=== PATIENT | female | born 1995 | race Two or more races ===

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

== ENCOUNTER 2019-03-09 11:28 | Inpatient (IN) | payer BC ==
[2019-03-09] MEDS ORDERED: Buffered Lidocaine 1% SYRIN* 1 ML/SYRINGE INTRADERM ONE (12:18)
[2019-03-09] MEDS ORDERED: Misoprostol TAB* 100 MCG PO ONE ×2 (12:18→21:44)
[2019-03-09] MEDS ORDERED: Lactated Ringers 1000 ML Bag* 1,000 ML IV ONE (12:18)
[2019-03-09] MEDS ORDERED: Penicillin G Potassium IV* 5,000,000 UNITS in NS 0.9% 100 ML* 100 ML IVPB ONE (12:18)
--- NOTE | 2019-03-09 12:29 | HP ---
General Information - Reason for Visit 23 yo with IUP at 41 0/7 weeks for postdates cervical ripening/IOL - General Information Maternal Age: 23 Grav: 1 Para: 0 SAB: 0 IEA: 0 Estimated Due Date: 03/02/19 Determined By: LMP Maternal Blood Type and Rh: B Positive - Results this Serology/RPR Result: Non-Reactive Rubella Result: Immune HBsAg Result: Negative HIV Result: Negative GBS Culture Result: Positive Past Medical History Pertinent Past Medical History: See Records Past Medical History Comment: Exercise-induced asthma Depression/Anxiety - follows with a counselor Pertinent Past Surgical History: See Records Past Surgical History Comment: Cyst removed from sternum - 1997 Pertinent Family History: Non-Contributory - Antepartal Records Antepartal Records: Reviewed, Complicated by: - Sickle cell trait, FOB is so unlikely to be a carrier Review of Systems Constitutional: Comfortable CV Complaint: No Respiratory: Shortness of Breath: No Gastrointestinal: No Nausea/Vomiting, Normal Bowel Movement Genitourinary: No Dysuria, No Bleeding, No Leaking Fluid Musculoskeletal: No Complaint, No Epigastric Pain Neurological: No Headache, No Visual Changes Movement: Normal Exam Allergies/Adverse Reactions: Allergies nitrofurantoin [From Macrobid] Allergy (Mild, Verified 03/04/19 15:39) Itching B/P: 132/84, P: 101, RR: 16, T: 98.1 - Measurements Height: 5 ft 3.75 in Weight: 216 lb Weight in lbs: 216.194298 Body Mass Index (BMI): 37.3 Pre- Weight: 154 lb Weight Gained This : 62 lbs and 0 ozs - Exam Breast: Breast Exam Deferred Extremities: No Edema Heart: Normal Rhythm/Heart Sounds HEENT: No Significant Findings Lungs: Clear Bilaterally Reflexes: DTR 2+ Thyroid: No Thyromegaly - Abdominal Exam Abdomen Exam: Non-Tender, Fundal Height Consistent with Dates - Ultrasound/Biophysical Profile Ultrasound Status: Not Done Targeted Exam Findings See L&D Outpatient Visit Provider Note for Findings: N/A Estimated Weight: 7.5 lb by raheem's Cervical Exam: Closed Effacement: Thick Presenting Part: Vertex Membrane Status: Intact Bleeding/Discharge: None EFM Findings - External Monitor Findings Baseline Heart Rate: 125 External Monitor Findings: Accelerations Present, No Pattern of Variable or Late Decelerations, Variability Moderate, Baseline Stable Contractions: None Assessment/Plan - Assessment A: IUP at 41 0/7 weeks Category I FHR Cervix unfavorable for induction GBS positive P: Discussed cervidil vs. misoprostol for ripening, pt prefers PO misoprostol at this time Begin GBS prophylaxis once in active labor or ROM Reassess in 3-4 hours or sooner as indicated Anticipate SVB - Obstetrical Risk Factors Obstetrical Risk Factors: GBS Positive, Post-Dates - Plan Plan: Cervical Ripening, Antibiotic Prophylaxis - Date/Time of Admission Date of Admission: 03/09/19 Time of Admission: 12:15
--- NOTE | 2019-03-09 17:31 | PN ---
Progress Note - Progress Note Date of Service: 03/09/19 SOAP: Subjective: Pt reports feeling comfortable, denies headache, denies abdominal pain. Does not feel ctx. Objective: BP elevated, most recently was 162/107. Prior to that BP was 120's to 130's over 70's. Pt states that she was moving arm while BP was taken. FHR baseline 125, moderate variability, + accels, no decels UCs mild 5-10 minutes apart, not felt by pt Membranes intact No recent cervical exam performed as misoprostol just given at 1706 Assessment: 23 year old at 41 0/7 weeks gestation here for cervical ripening/ IOL for postdates, no evidence of acidemia, GBS positive membranes intact, with several elevated BPs, possibly gestational HTN vs preeclampsia vs white coat syndrome (BPs have always been higher when RN/ welfare interviewer at bedside) Plan: Pt had misoprostol, will monitor for effect, continue augmentation/ induction. IV access established, and preeclampsia labs sent. If BP remains elevated, or if labs are abnormal will consult with Dr. Loar.
[2019-03-09 17:46] LABS: ABS Basophils 0 10^3/ul (0-0.2); ABS Eosinophils 0 10^3/ul (0-0.6); ABS Lymphocytes 1.2 10^3/ul (1.0-4.8); ABS Neutrophils 4.2 10^3/ul (1.5-7.7); ABS Nucleated RBC 0 10^3/ul; Eosinophil % 0.4 %; Hematocrit 37 % (33-41); Hemoglobin 12.4 g/dL (12.0-16.0); Mean Corpuscular HGB Conc 33 g/dL (31-36); Mean Corpuscular Hemoglobin 27 pg (27-31); Mean Corpuscular Volume 80 fL (80-97); Mean Platelet Volume 9.5 fL (7.4-10.4); Nucleated Red Blood Cells % 0.1; Platelet Count 197 10^3/uL (150-450); Red Blood Count 4.67 10^6 /uL (3.70-4.87); Red Cell Distribution Width 15 % (10.5-15); White Blood Count 6.5 10^3/uL (3.5-10.8)
[2019-03-09 18:13] LABS: Albumin 3.5 g/dL (3.2-5.2); Albumin/Globulin Ratio 1.2 (1-3); BUN/Creatinine Ratio 14.5 (8-20); Calcium 9.3 mg/dL (8.6-10.3); EGFR Non-African American 107.4 (>60); Potassium 4.1 mmol/L (3.5-5.0); Total Bilirubin 0.3 mg/dL (0.2-1.0); Total Protein 6.5 g/dL (6.4-8.9)
[2019-03-09 18:41] LABS: Uric Acid 6.6 mg/dL (2.3-6.6)
[2019-03-09 19:08] LABS: Urine Appearance Clear; Urine Bacteria 1+ (Absent); Urine Bilirubin Negative (Negative); Urine Blood Negative (Negative); Urine Color Yellow; Urine Glucose Negative (Negative); Urine Ketones Negative (Negative); Urine Nitrite Negative (Negative); Urine Protein Negative (Negative); Urine Red Blood Cell Absent (Absent); Urine Specific Gravity 1.016 (1.010-1.030); Urine Squamous Epithelial Cell Present (Absent); Urine Urobilinogen Negative (Negative); Urine White Blood Cell Trace(0-5/hpf) (Absent)
--- NOTE | 2019-03-09 22:04 | PN ---
Progress Note - Progress Note Date of Service: 03/09/19 SOAP: Subjective: Pt reports feeling some "tightening" intermittently, not uncomfortable. Feels active FM. Objective: BP now 130/80 Labs largely WNL, although uric acid 6.6. Urine dip negative for protein. FHR: Baseline 125, moderate variability, + accels, no decels UCs mild, irregular Cervix: closed/ 50% effaced/ soft/ posterior Garvey score = 3 Assessment: Pt remains unfavorable for Pitocin induction at this time. No evidence of acidemia. Membranes intact. Continued elevated BP, although none as high as previous. Plan: Consulted Dr. Lora regarding pt's elevated BPs. Likely Gestational HTN vs preeclampsia. Recommends continued induction of labor. Discussed options with pt for cervical ripening, as cervix remains unfavorable for Pitocin induction at this time. Discussed Cervidil vs continued misoprostol. As pt very uncomfortable with cervical exams, she elects to continue oral misoprostol. Will reevaluate 4 hours after misoprostol or as needed.
[2019-03-10] MEDS: Lactated Ringers 1000 ML Bag* 1,000 ML IV SCH ×2 (02:59→21:37)
--- NOTE | 2019-03-10 03:22 | PN ---
Progress Note - Progress Note Date of Service: 03/10/19 SOAP: Subjective: Pt reports SROM to clear fluid around 0230. Since then she reports ctx feel more uncomfortable. She also reports heartburn. Has been sleeping on and off. Objective: FHR: Baseline 110, moderate variability, + accels, no decels UCs: every 1-5 minutes, mild to moderate in intensity BP: 135/63 Temp: 97.7 Assessment: 23 year old at 41 1/7 weeks gestation here for cervical ripening/ IOL for postdates, now with gestational HTN vs preeclampsia without severe features. Membranes ruptured, GBS positive. No evidence of chorioamnionitis. FHR baseline 110, lower than previous, but still within normal range, and showing moderate variability and + accelerations, no evidence of acidemia. Plan: Since she ruptured and is now feeling ctx more painfully, will monitor labor status for a few hours and see if active labor begins spontaneously. If not will consider oral misoprostol vs Pitocin. GBS prophylaxis initiated. Tums ordered for heartburn. Will continue EFM for now to monitor baby following baseline change from 125 to 110. IF FHR continues to be Category I can return to intermittent monitoring.
[2019-03-10] MEDS: Calcium Carbonate CHEW TAB* 500 MG (TUMS) PO PRN ×2 (03:28→08:37)
[2019-03-10] MEDS: Penicillin G Potassium IV* 2,500,000 UNITS in NS 0.9% 100 ML* 100 ML IVPB SCH ×5 (07:27→23:50)
--- NOTE | 2019-03-10 08:16 | PN ---
Progress Note - Progress Note Date of Service: 03/10/19 SOAP: Subjective: Pt feeling stronger contractions. Used the tub for a while, then was asking about other options for pain relief. Objective: Cervix: difficult to assess fully due to position and pt discomfort with exam, posterior, likely closed, perhaps more effaced than previously BP: 112/72 Temp: 97.8 FHR: Baseline 110 Assessment: Pt with ruptured membranes, not yet in active labor, although ctx starting to increase in intensity. No evidence of acidemia, not hypertensive this morning. Plan: Discussed options for pain relief with pt. Encouraged her to wait for epidural. Offered Nubain and Phenergan, pt would like to try. Encouraged position changes , ambulation as tolerated. Morteza too much for further cervical ripening at this time. Will monitor her contractions, consider Pitocin augmentation as needed. Report to oncoming hospital personnel director Kristal Kaba CNM.
--- NOTE | 2019-03-10 08:36 | PN ---
Progress Note - Progress Note Date of Service: 03/10/19 Note: SOAP: Subjective: Pt feeling stronger contractions every 2-5 minutes. Tearful, requesting pain medication. Objective: VE: deferred BP 112/72, temp 97.8 FHR 110, with baseline change to 120, +accelerations, moderate variability, no decels Contractions: palpate moderate to strong, q2-5 minutes SROM 0230 03/10, clear fluid Assessment: VSS, afrebile, hx of elevated BP - not hypertensive this AM GBS+, prophylaxis started Early labor No evidence of acidemia Plan: Will give pt Nubain and Phenergan Discussed possibility of Pitocin augmentation, if no cervical change. After risks vs. benefits, pt in agreement with plan. VE prn anticipate progression to
--- NOTE | 2019-03-10 09:42 | PN ---
Progress Note - Progress Note Date of Service: 03/10/19 Note: SOAP: Subjective: Pt sitting up in chair. Deferred pain medication so she could walk halls. Still feeling contractions, some more painful than others. Now ready for pain medication. Objective: VE: difficult vaginal exam. Cervix is posterior and pt intolerant of exams. Cervix soft and possibly a fingertip Contractions q5 mins Assessment: Regular contractions, without documented cervical change Plan: Will give pt Nubain and Phenergan Given regular contractions, not a good candidate for additional cervical ripening Plan to start low dose Pitocin. Pt in agreement with plan. VE prn Anticipate progression to active labor
[2019-03-10] MEDS ORDERED: Oxytocin in LR* 20 UNITS/1,000 ML BAG IVPB SCH (10:00)
[2019-03-10] MEDS: Nalbuphine* 10 MG/ML 1 ML VIAL IV ONE ×2 (11:17→11:18)
[2019-03-10] MEDS: Promethazine INJ(RESTRICTED)* 25 MG/ML 1 ML VIAL IV ONE (11:18)
--- NOTE | 2019-03-10 13:21 | PN ---
Progress Note - Progress Note Date of Service: 03/10/19 Note: SOAP: Subjective: Pt laying in bed. States contractions are becoming more intense. Eating a cookie. Feels like pain medication wearing off. Well supported by family and friends at bedside. Objective: VE: deferred FHT: 115, moderate variability Contractions q2-3 mins, (coupling) Assessment: No evidence of acidemia Regular contractions Pitocin@8mU Plan: Continue to increase Pitocin as tolerated by baby/pt GBS prophylaxis as prescribed VE prn Anticipate progression to active labor
[2019-03-10] MEDS ORDERED: OBEPIDURAL* 250 ML EPIDURAL ONE (15:15)
--- NOTE | 2019-03-10 15:26 | PN ---
Progress Note - Progress Note Date of Service: 03/10/19 Note: SOAP: Subjective: Pt laying in bed. Tearful with contractions. Objective: VE: vaginal exam continue to be painful for the patient and difficult. FT/50%, soft, posterior, bloody show FHT: 125, moderate variability Contractions q2-3 mins Assessment: No evidence of acidemia Regular contractions Plan: Pt very uncomfortable and intolerant of VE. Plan for epidural Anesthesia aware Will turn Pitocin down and restart Pitocin after epidural depending on VE GBS prophylaxis as prescribed Anticipate progression to active labor
[2019-03-10] MEDS ORDERED: Bupivacaine 0.25% SDV PF* 10 ML VIAL INJ ONE ×3 (15:41→22:30)
[2019-03-10] MEDS ORDERED: Sodium Citrate/Citric Acid* 15 ML UDC PO PRN (16:21)
[2019-03-10] MEDS ORDERED: EPHEDrine (Pressors)* 50 MG/ML VIAL IV PUSH PRN (16:21)
[2019-03-10] MEDS ORDERED: Lactated Ringers 1000 ML Bag* 1,000 ML IV ONE (16:21)
[2019-03-10] MEDS ORDERED: Famotidine TAB* 20 MG PO PRN (16:21)
[2019-03-10] MEDS ORDERED: Phenylephrine 40 MCG/ML SYRINGE IV PUSH PRN (16:21)
[2019-03-10] MEDS ORDERED: Lidocaine 2% VISCOUS* 15 ML UDC ONE (16:58)
[2019-03-10] MEDS ORDERED: Lidocaine 2% JELLY* 6 ML JELLY TOPICAL ONE (16:59)
[2019-03-10] MEDS ORDERED: OBEPIDURAL* 250 ML EPIDURAL SCH (17:00)
[2019-03-10] MEDS ORDERED: Lactated Ringers 1000 ML Bag* 1,000 ML IV SCH (17:00)
--- NOTE | 2019-03-10 17:47 | PN ---
Progress Note - Progress Note Date of Service: 03/10/19 Note: SOAP: Subjective: Pt laying in bed. Comfortable with CEI infusing. Family/friends at bedside, supportive. Objective: VE: performed without difficulty. 2cm/80%/-1/0, anterior FHT: 135, moderate variability, early variables Contractions: q3-5 (coupling) Assessment: Pt comfortable with CEI infusing No evidence of acidemia Pt making cervical change Plan: Restart Pitocin, increase until effective labor pattern established GBS prophylaxis as prescribed Anticipate progression to
--- NOTE | 2019-03-10 19:34 | PN ---
Progress Note - Progress Note Date of Service: 03/10/19 Note: SOAP: Subjective: Pt laying on right lateral. Comfortable with CEI infusing. Family/friends at bedside, supportive. Objective: VE: performed without difficulty. 3cm/80%/-1/0, anterior FHT: 135, moderate variability, late decels noted BP 127/69, temp 97.8 Contractions: q3-5 (coupling) Pit@14 mU Assessment: VSS, pt afebrile Pt comfortable with CEI infusing Occasional late decels - no evidence of acidemia Pt making cervical change Plan: Re late decels - position changes, LR infusing, Pit turned down 12 mU GBS prophylaxis as prescribed Anticipate progression to
--- NOTE | 2019-03-10 22:10 | PN ---
Progress Note - Progress Note Date of Service: 03/10/19 Note: SOAP: Subjective: Pt laying on left lateral. Uncomfortable, with CEI infusing. Feeling pressure and shaky. Family/friends at bedside, supportive. Objective: VE: performed without difficulty. 5cm/100%/-1 anterior, bulging bag FHT: 130, moderate variability, accels present, early decels BP 143/67, temp 98.0 Contractions: q2-5 Pit@11 mU Assessment: No evidence of acidemia Pt afebrile Pt very uncomfortable with CEI infusing Pt making cervical change Plan: Spoke with anesthesia. Dr. Ambrosio in OR. Dr. Cyr paged from home. VE: PRN GBS prophylaxis as prescribed Anticipate progression to
[2019-03-10] MEDS ORDERED: Lidocaine 2% PF* 10 ML AMP ONE (22:34)
--- NOTE | 2019-03-10 23:25 | PN ---
Progress Note - Progress Note Date of Service: 03/10/19 Note: SOAP: Subjective: Pt laying on right lateral. Comfortable with CEI infusing. Shaky. Family/ friends at bedside, supportive. Objective: VE: performed without difficulty. 8cm/100%/0 anterior, forebag ruptured FHT: 135, moderate variability, accels present, no decels BP 135/69, temp 98.2 Contractions: after re-dose, pt contractions spaced considerably and now palpate mild Pit was at 13mU, before turned off Assessment: No evidence of acidemia Pt afebrile, BP stable Following forebag rupture, thin meconium noted in fluid Pt now comfortable following re-dose Pt making cervical change Plan: Turn-off Pitocin for short break, will restart in 30mins to 1 hour VE: PRN GBS prophylaxis as prescribed Anticipate progression to
[2019-03-11] MEDS: Calcium Carbonate CHEW TAB* 500 MG (TUMS) PO PRN (00:02)
--- NOTE | 2019-03-11 00:20 | PN ---
Progress Note - Progress Note Date of Service: 03/11/19 Note: SOAP: Subjective: Pt laying on left lateral. Comfortable with CEI infusing. Family/friends at bedside, supportive. Objective: VE: performed without difficulty. 9cm/100%/0 anterior FHT: 135, moderate variability, accels present, no decels Contractions: after re-dose, pt contractions spaced considerably and now palpate mild Pitocin@5mU Assessment: No evidence of acidemia Pt making cervical change Plan: Pitocin restarted VE: PRN GBS prophylaxis as prescribed Anticipate progression to
--- NOTE | 2019-03-11 01:10 | PN ---
Progress Note - Progress Note Date of Service: 03/11/19 Note: SOAP: Subjective: Comfortable with CEI infusing. Family/friends at bedside, supportive. Objective: VE: performed without difficulty. 10cm/100%/0 anterior FHT: 135, moderate variability, accels present, no decels Contractions: after re-dose, pt contractions spaced considerably and now palpate mild Pitocin@5mU Assessment: No evidence of acidemia Meconium stained fluid Fully dilated Plan: Continue to increase Pitocin to establish effective contraction pattern for pushing Pt to labor down GBS prophylaxis as prescribed Anticipate progression to
[2019-03-11] MEDS: Penicillin G Potassium IV* 2,500,000 UNITS in NS 0.9% 100 ML* 100 ML IVPB SCH (03:45)
[2019-03-11] MEDS ORDERED: Glycerin ADULT SUPP PR PRN (06:18)
[2019-03-11] MEDS ORDERED: Misoprostol TAB* 200 MCG PR ONE (06:18)
--- NOTE | 2019-03-11 06:30 | PROCNOTE ---
[facility] OB: Delivery Note - Delivery A Date of : 03/11/19 Time of : 04:37 Gamaliel Sex: Male Weight at : 4185 lb Score 1 Minute: 8 Score 5 Minutes: 9 Gestational Age in Weeks and Days at Delivery: 41 Weeks and 2 Days Delivery Method: Spontaneous Vaginal Labor: Induced Did Patient attempt ?: No, Did Not Attempt Amniotic Fluid: Meconium Estimated Blood Loss: 700 Anesthesia/Analgesia: CEI for Labor Anesthesia Comment: Switzer Delivered By: Anh Kaba - Nursery Level of Nursery: Regular/Bedside - Perineum Perineal Injury: 3rd Degree Extension Perineal Injury Comment: repaired with CEI infusing and 1% lido Perineal Repair: Repaired by Vimal Crowe MD - Events Delivery Events of Note: Pitocin During Labor, Full Course of Antibiotics, Post- Bleeding - Meds Given, ROM > 24 Hours Delivery Events of Note Comment: trailing membranes - Risk for Falls Delivered OB Patient- Risk for Falls: Heavy Bleeding Fall Risk: Patient is at High Risk for Falls - Additional Delivery Notes Additional Delivery Notes: 23 yo at 41+2 weeks admitted for cervical ripening and an IOL for postdates. Ripening via misoprostol x2 doses; labor augmented by pitocin. SROM at 0230 on 03/10, light meconium fluid. Progressed to complete, CEI infusing with incomplete relief. Pt began pushing spontaneously without discernable contractions at 0330. Crowned to delivery of liveborn male infant at 0437, OA to ABBEY. Shoulders followed easily. to mother's chest, dried and stimulated with spontaneous cry. Cord clamped and cut x2 by delivering provider. Brought to warmer for delivery of placenta and extra stimulation. Spontaneous yanick delivery of intact placenta at 0512 by Vimal Crowe MD with trailing membranes delivered by Mo Kaba CNM. Pitocin initiated. Brisk bleeding continued as IV pitocin infused. Misoprostol, 800 mcg, given MI. Fundus firm. Bleeding resolved. EBL 700mL. After careful inspection a third degree perineal laceration was identified and repaired in the usual fashion by Vimal Crowe MD. Normal anatomy restored, hemostasis achieved. formula feeding, 9lbs 4 oz. Mother and infant in stable condition at time of note. moody
[2019-03-11] MEDS ORDERED: Methylergonovine INJ* 0.2 MG/ML 1ML AMP ONE (06:40)
[2019-03-11] MEDS ORDERED: OXYTOCIN* 10 UNITS/ML 1 ML VIAL ONE (06:40)
[2019-03-11] MEDS ORDERED: Lidocaine 1% INJ* 10 MG/ML 30 ML SDV ONE (06:41)
[2019-03-11] MEDS ORDERED: Lactated Ringers 1000 ML Bag* 1,000 ML IV SCH (07:00)
[2019-03-11] MEDS ORDERED: Oxytocin in LR* 20 UNITS/1,000 ML BAG IVPB SCH (07:00)
--- NOTE | 2019-03-11 08:13 | PN ---
Progress Note - Progress Note Date of Service: 03/11/19 Note: Present for delivery of male . Assisted with delivery of placenta after 30min of active management by CNM. Placenta delivered with uterine massage and cord traction immediately followed by trailing membranes. Moderate bleeding was managed with uterine massage, IV pitocin and cytotec. A partial 3rd degree laceration was repaired first with several interrupted sutures of 3-0 vicryl to reapproximate the sphincter. Then a deep vaginal laceration was repaired with locked running 3-0 vicryl rapide. This was continued to repair b/l introital tears and then into normal repair of a second degree tear that extended superficially almost to the rectum. Normal rectal exam after repair. Pt stable with good hemostasis.
[2019-03-11] MEDS ORDERED: Simethicone TAB* 80 MG TAB.CHEW PO SCH (08:30)
[2019-03-11] MEDS: Docusate CAP* 100 MG PO SCH ×3 (08:35→21:02)
[2019-03-11] MEDS: Ibuprofen TAB* 600 MG PO PRN ×2 (08:37→18:06)
[2019-03-11] MEDS: Witch Hazel PAD* JAR TOPICAL PRN (14:59)
[2019-03-11] MEDS: Dibucaine 1% 28.35 GM TUBE PR PRN (20:08)
[2019-03-11] MEDS: Acetaminophen TAB* 325 MG PO PRN (21:02)
[2019-03-12] MEDS: Ibuprofen TAB* 600 MG PO PRN ×4 (00:35→21:02)
[2019-03-12] MEDS: Acetaminophen TAB* 325 MG PO PRN (05:09)
[2019-03-12 09:02] LABS: ABS Basophils 0 10^3/ul (0-0.2); ABS Eosinophils 0.1 10^3/ul (0-0.6); ABS Lymphocytes 1.5 10^3/ul (1.0-4.8); ABS Monocytes 1.1 10^3/ul (0-0.8); ABS Neutrophils 9.1 10^3/ul (1.5-7.7); ABS Nucleated RBC 0 10^3/ul; Eosinophil % 0.6 %; Hematocrit 28 % (33-41); Hemoglobin 9.4 g/dL (12.0-16.0); Lymphocyte % 12.9 %; Mean Corpuscular HGB Conc 33 g/dL (31-36); Mean Corpuscular Hemoglobin 26 pg (27-31); Mean Corpuscular Volume 79 fL (80-97); Mean Platelet Volume 9.3 fL (7.4-10.4); Nucleated Red Blood Cells % 0; Platelet Count 149 10^3/uL (150-450); Red Blood Count 3.59 10^6 /uL (3.70-4.87); Red Cell Distribution Width 15 % (10.5-15); White Blood Count 11.9 10^3/uL (3.5-10.8)
[2019-03-12] MEDS: Ferrous Gluconate TAB* 324 MG TAB PO SCH ×2 (09:10→21:02)
[2019-03-12] MEDS: Docusate CAP* 100 MG PO SCH ×3 (09:10→21:02)
[2019-03-12] MEDS: Dibucaine 1% 28.35 GM TUBE PR PRN (09:10)
[2019-03-12] MEDS: Witch Hazel PAD* JAR TOPICAL PRN (09:11)
--- NOTE | 2019-03-12 20:58 | PTEDU ---
Patient Name: ALYSSIA HENAO ALYSSIA HENAO selected video: Never Ever Shake a Baby to view on 03/12/2019 at 8:56:54 PM [id number]
[2019-03-13] MEDS: Ibuprofen TAB* 600 MG PO PRN (07:46)
[2019-03-13] MEDS: Witch Hazel PAD* JAR TOPICAL PRN (07:47)
[2019-03-13] MEDS: Ferrous Gluconate TAB* 324 MG TAB PO SCH (07:47)
[2019-03-13] MEDS: Dibucaine 1% 28.35 GM TUBE PR PRN (07:47)
[2019-03-13] MEDS: Docusate CAP* 100 MG PO SCH (07:47)
[2019-03-13 08:51] VITALS: BP 128/63
[2019-03-13 11:12] LABS: Urine Appearance Cloudy; Urine Bacteria Absent (Absent); Urine Bilirubin Negative (Negative); Urine Blood 3+ (Negative); Urine Glucose Negative (Negative); Urine Ketones Negative (Negative); Urine Nitrite Negative (Negative); Urine Protein 2+(100 mg/dL) (Negative); Urine Red Blood Cell 3+(>10/hpf) (Absent); Urine Urobilinogen Negative (Negative); Urine White Blood Cell 3+(>20/hpf) (Absent)
[2019-03-13 11:25] LABS: Urine Color Amber
[2019-03-13] MEDS ORDERED: Cephalexin CAP* 500 MG PO SCH (21:00)
== END 2019-03-13 13:08 | disposition home or self-care (01) | DRG 542 ==
LOC: MCHOBOUT 11:28 → MCHOB 11:53
PROVIDERS: ADMIT Midwife; ATTEND Advanced Practice Midwife
PROC: 10E0XZZ Delivery of Products of Conception, External Approach (ICD-10-PCS; principal; 2019-03-13)
PROC: 3E033VJ Introduction of Other Hormone into Peripheral Vein, Percutaneous Approach (ICD-10-PCS; 2019-03-13)
PROC: 10907ZC Drainage of Amniotic Fluid, Therapeutic from Products of Conception, Via Natural or Artificial Opening (ICD-10-PCS; 2019-03-13)
PROC: 4A1HXCZ Monitoring of Products of Conception, Cardiac Rate, External Approach (ICD-10-PCS; 2019-03-13)
PROC: 0DQR0ZZ Repair Anal Sphincter, Open Approach (ICD-10-PCS; 2019-03-13)
DX: O48.0 Post-term pregnancy (principal); Z37.0 Single live birth; O99.42 Diseases of the circulatory system complicating childbirth; O99.02 Anemia complicating childbirth; D57.3 Sickle-cell trait; O99.824 Streptococcus B carrier state complicating childbirth; R03.0 Elevated blood-pressure reading, without diagnosis of hypertension; Z3A.41 41 weeks gestation of pregnancy; Z88.1 Allergy status to other antibiotic agents; O77.0 Labor and delivery complicated by meconium in amniotic fluid; O90.81 Anemia of the puerperium; O76 Abnormality in fetal heart rate and rhythm complicating labor and delivery
CPT/HCPCS: 36415; 80053; 81003; 81015; 84550; 85025; 86850; 86900; 86901; 87077; 87086; 87186; A9270-GY; J2001; J2210; J2300; J2540; J2550; J2590; J3490; S0191

== ENCOUNTER 2019-03-13 21:47 | Emergency (ER) | payer BC ==
--- NOTE | 2019-03-13 22:49 | ED ---
GI/ HPI - HPI Summary HPI Summary: This patient is a 23 year old F, , presenting to [facility] with a chief complaint of a post complication at 20:30 today. She had a vaginal delivery on 03/11/19 and was discharged today around 12:00. During delivery, the placenta got stuck for a while and she suffered a 3rd degree tear. Tonight , at 20:30, she was taking a sitz bath when she felt a burning sensation and a fist-sized blood clot came out. While in the hospital, pt was told that she has a UTI, so since yesterday she has felt pain and has had difficulty peeing. Patient reports cramps (at first, not anymore), lightheadedness, and swollen legs. Patient denies fever. During , her blood pressure was occasionally high, but she was not given meds, just monitored. Her blood pressure in the room at 22:45 was 127/75. - History of Current Complaint Chief Complaint: EDVaginalBleeding Time Seen by Provider: 03/13/19 22:34 Stated Complaint: OB PROBLEM PER PT Hx Obtained From: Patient Hx Last Menstrual Period: 12/27/16 Onset/Duration: Started Hours Ago - 20:30 Severity: Moderate Pain Intensity: 0 Pain Characteristics: Cramping - at first, not anymore Associated Signs and Symptoms: Positive: Discharge - Fist sized clot, Lightheadedness, UTI Symptoms - Pain and difficulty peeing, Other: - Swollen legs. Negative: Fever - Allergy/Home Medications Allergies/Adverse Reactions: Allergies Allergy/AdvReac Type Severity Reaction Status Date / Time nitrofurantoin Allergy Mild Itching Verified 03/13/19 22:08 [From Macrobid] PMH/Surg Hx/FS Hx/Imm Hx Endocrine/Hematology History: Denies: Hx Anticoagulant Therapy, Hx Diabetes, Hx Thyroid Disease Cardiovascular History: Denies: Hx Congestive Heart Failure, Hx Deep Vein Thrombosis, Hx Hypertension , Hx Myocardial Infarction, Hx Pacemaker/ICD Respiratory History: Reports: Hx Asthma - Exercise induced - Albuterol inhaler as needed Denies: Hx Chronic Obstructive Pulmonary Disease (COPD), Hx Lung Cancer, Hx Pneumonia, Hx Pulmonary Embolism GI History: Denies: Hx Gall Bladder Disease, Hx Gastrointestinal Bleed, Hx Ulcer, Hx Urosepsis History: Denies: Hx Kidney Stones, Hx Renal Disease Neurological History: Denies: Hx Dementia, Hx Migraine, Hx Seizures, Hx Transient Ischemic Attacks (TIA) Psychiatric History: Reports: Hx Anxiety, Hx Depression Denies: Hx Schizophrenia, Hx Bipolar Disorder - Surgical History Surgery Procedure, Year, and Place: None - Immunization History Date of Tetanus Vaccine: 03/12/09 Infectious Disease History: No Infectious Disease History: Denies: Traveled Outside the [place] in Last 30 Days - Family History Known Family History: Negative: Cardiac Disease, Hypertension - Social History Alcohol Use: None Substance Use Type: Reports: None Smoking Status (MU): Never Smoked Tobacco Review of Systems Negative: Fever Positive: discharge - Fist sized clot, pain - Cramps (at first, not anymore), pain from UTI, burning sensation when discharging the clot in the sitz bath, other - Difficulty urinating secondary to UTI Positive: Edema - Swollen legs Neurological: Other - Lightheadedness All Other Systems Reviewed And Are Negative: Yes Physical Exam - Summary Physical Exam Summary: VITAL SIGNS: Reviewed. GENERAL: Patient is a well-developed and nourished FEMALE who is lying comfortable in the stretcher. Patient is not in any acute respiratory distress. HEAD AND FACE: No signs of trauma. No ecchymosis, hematomas or skull depressions. No sinus tenderness. EYES: PERRLA, EOMI x 2, No injected conjunctiva, no nystagmus. EARS: Hearing grossly intact. Ear canals and tympanic membranes are within normal limits. MOUTH: Oropharynx within normal limits. NECK: Supple, trachea is midline, no adenopathy, no JVD, no carotid bruit, no c- spine tenderness, neck with full ROM. CHEST: Symmetric, no tenderness at palpation LUNGS: Clear to auscultation bilaterally. No wheezing or crackles. CVS: Regular rate and rhythm, S1 and S2 present, no murmurs or gallops appreciated. ABDOMEN: Soft. Abdominal distention without tenderness. No rebound, no guarding , and no masses palpated. Bowel sounds are normal. EXTREMITIES: FROM in all major joints, trace bilateral LE edema, no cyanosis or clubbing. NEURO: Alert and oriented x 3. No acute neurological deficits. Speech is normal and follows commands. SKIN: Dry and warm Triage Information Reviewed: Yes Vital Signs On Initial Exam: Initial Vitals Temp Pulse Resp BP Pulse Ox 98.0 F 102 16 165/73 99 03/13/19 22:00 03/13/19 22:00 03/13/19 22:00 03/13/19 22:00 03/13/19 22:00 Vital Signs Reviewed: Yes Diagnostics - Vital Signs Vital Signs Temp Pulse Resp BP Pulse Ox 03/13/19 22:00 98.0 F 102 16 165/73 99 - Laboratory Result Diagrams: 03/13/19 23:25 03/13/19 23:25 Lab Statement: Any lab studies that have been ordered have been reviewed, and results considered in the medical decision making process. - Ultrasound No standard instances Ultrasound Interpretation Completed By: Radiologist Summary of Ultrasound Findings: Pelvis US 00:00. Heterogeneously hyperechoic thickening of the endometrium without definite. hyperemia. Findings are nonspecific, however retained products of conception. cannot be entirely excluded. Recommend continued short-term followup pelvic. ultrasound at the discretion of [employer] SAL[employer]SULTANT. ED Physician has reviewed this imaging report. GIGU Course/Dx - Course Course Of Treatment: This patient is a 23 year old F, , presenting to [facility] with a chief complaint of a post complication at 20:30 today. Patient s pelvic US did show no definite returned product. Patient did not have any further bleeding in the ED. Patient will be d/c home on Methergine for 2 days. Advised to follow up with bryon tomorrow. D/c home, dx bleeding. - Diagnoses Provider Diagnoses: bleeding Discharge - Sign-Out/Discharge Documenting (check all that apply): Patient Departure - D/C home Patient Received Moderate/Deep Sedation with Procedure: No - Discharge Plan Condition: Stable Disposition: HOME Prescriptions: Methylergonovine TAB* [Methergine TAB*] 0.2 mg PO TID #6 tab Patient Education Materials: Bleeding (ED) Referrals: Noel Zamudio MD [Primary Care Provider] - 3 Days Jorgito Borrero MD [Medical Doctor] - 1 Day Additional Instructions: Follow up with bryon Bell, tomorrow. Follow up with your PCP in 3 days. PLEASE RETURN TO THE ED IMMEDIATELY FOR WORSENING OR CONCERNING SYMPTOMS. - Attestation Statements Document Initiated by Scribe: Yes Documenting Scribe: Howard Melendrez Provider For Whom Scribe is Documenting (Include Credential): Darcy Helm MD Scribe Attestation: Howard Terrazas scribed for Darcy Helm MD on 03/14/19 at 0026. Status of Scribe Document: Ready
[2019-03-13 23:34] LABS: ABS Basophils 0.1 10^3/ul (0-0.2); ABS Eosinophils 0.2 10^3/ul (0-0.6); ABS Lymphocytes 1.3 10^3/ul (1.0-4.8); ABS Monocytes 0.8 10^3/ul (0-0.8); ABS Neutrophils 8.4 10^3/ul (1.5-7.7); ABS Nucleated RBC 0 10^3/ul; Eosinophil % 1.8 %; Hematocrit 27 % (33-41); Hemoglobin 9.3 g/dL (12.0-16.0); Lymphocyte % 12.1 %; Mean Corpuscular HGB Conc 34 g/dL (31-36); Mean Corpuscular Hemoglobin 27 pg (27-31); Mean Corpuscular Volume 79 fL (80-97); Mean Platelet Volume 8.9 fL (7.4-10.4); Nucleated Red Blood Cells % 0.1; Platelet Count 198 10^3/uL (150-450); Red Blood Count 3.46 10^6 /uL (3.70-4.87); Red Cell Distribution Width 15 % (10.5-15); White Blood Count 10.7 10^3/uL (3.5-10.8)
[2019-03-13 23:43] LABS: Activated Partial Thrombo Time 22.7 seconds (26.0-36.3); INR 0.86 (0.77-1.02)
[2019-03-13 23:52] LABS: Albumin 3.2 g/dL (3.2-5.2); Albumin/Globulin Ratio 1.1 (1-3); Calcium 8.9 mg/dL (8.6-10.3); EGFR African American 152.7 (>60); EGFR Non-African American 126.2 (>60); Potassium 3.8 mmol/L (3.5-5.0); Total Bilirubin 0.2 mg/dL (0.2-1.0); Total Protein 6.2 g/dL (6.4-8.9)
[2019-03-14] MEDS ORDERED: Methylergonovine TAB* 0.2 MG PO ONE (00:16)
[2019-03-14 02:03] VITALS: BP 125/80
== END 2019-03-14 01:40 | disposition home or self-care (01) ==
LOC: ED 21:47
DX: O72.1 Other immediate postpartum hemorrhage (principal); R60.9 Edema, unspecified; N39.0 Urinary tract infection, site not specified; R42 Dizziness and giddiness
CPT/HCPCS: 36415; 76856; 80053; 85025; 85610; 85730; 86850; 86900; 86901; 99283; A9270-GY

== ENCOUNTER 2021-10-28 10:19 | Inpatient (IN) ==
[2021-10-28] MEDS ORDERED: Penicillin G Potassium IV 5,000,000 UNITS in NS 0.9% 100 ml BAG 100 ML IVPB ONE (11:20)
[2021-10-28] MEDS ORDERED: Buffered Lidocaine 1% SYRIN 1 ml INTRADERM ONE (11:20)
[2021-10-28] MEDS ORDERED: Lactated Ringers 1000 ml BAG 1,000 ML IV ONE (11:20)
[2021-10-28] MEDS ORDERED: Lactated Ringers 1000 ml BAG 1,000 ML IV SCH (12:00)
[2021-10-28 12:49] LABS: Rapid COVID-19 Molecular Undetected (Undetected)
[2021-10-28 12:52] LABS: Urine Benzodiazepine Screen None Detected (None Detect); Urine Cannabinoids Screen None Detected (None Detect); Urine Opiates Screen None Detected (None Detect)
[2021-10-28] MEDS ORDERED: Dinoprostone 10 MG VAG.SUPP VAGINAL ONE (21:35)
[2021-10-28] MEDS: Calcium Carb (TUMS) 500 mg CHEW TAB PO PRN (23:22)
[2021-10-29] MEDS ORDERED: Nalbuphine 10 MG/ML 1 ML VIAL IV ONE ×2 (05:53→17:35)
[2021-10-29] MEDS ORDERED: Promethazine INJ(RESTRICTED) 25 MG/ML 1 ml VIAL IV ONE ×2 (05:54→17:36)
[2021-10-29 06:19] LABS: ABS Lymphocytes 1.6 10^3/ul (1.0-4.8); ABS Monocytes 0.7 10^3/ul (0-0.8); ABS Neutrophils 4.1 10^3/ul (1.5-7.7); Eosinophil % 0.7 %; Hematocrit 42 % (35-47); Hemoglobin 14.4 g/dL (12.0-16.0); Lymphocyte % 24.7 %; Mean Corpuscular HGB Conc 34 g/dL (31-36); Mean Corpuscular Hemoglobin 29 pg (27-31); Mean Corpuscular Volume 83 fL (80-97); Nucleated Red Blood Cells % 0.1; Platelet Count 167 10^3/uL (150-450); Red Blood Count 5.06 10^6 /uL (3.70-4.87); Red Cell Distribution Width 14 % (10-15); White Blood Count 6.6 10^3/uL (3.5-10.8)
[2021-10-29] MEDS: Penicillin G Potassium IV 3,000,000 UNITS in NS 0.9% 100 ml BAG 100 ML IVPB SCH ×2 (13:40→19:08)
[2021-10-29] MEDS ORDERED: OBEPIDURAL 250 ML EPIDURAL ONE (19:54)
[2021-10-29] MEDS ORDERED: Lactated Ringers 1000 ml BAG 1,000 ML IV ONE (22:08)
[2021-10-29] MEDS ORDERED: Sodium Citrate/Citric Acid LIQ 15 ML UDC PO PRN (22:08)
[2021-10-29] MEDS ORDERED: Lactated Ringers 1000 ml BAG 500 ML IV PRN ×2 (22:08)
[2021-10-29] MEDS ORDERED: Phenylephrine 40 mcg/mL 10mL (400mcg) SYRINGE IV PUSH PRN ×2 (22:08)
[2021-10-29] MEDS ORDERED: Oxytocin in LR 20 UNITS/1,000 ML BAG IVPB ONE (22:24)
[2021-10-29] MEDS ORDERED: OBEPIDURAL 250 ML EPIDURAL SCH (23:00)
[2021-10-29] MEDS ORDERED: Penicillin G Potassium IV 3,000,000 UNITS in NS 0.9% 100 ml BAG 100 ML IVPB SCH (23:00)
[2021-10-29] MEDS ORDERED: Lactated Ringers 1000 ml BAG 1,000 ML IV SCH ×2 (23:00→23:45)
[2021-10-29] MEDS ORDERED: Oxytocin in LR 20 UNITS/1,000 ML BAG IVPB SCH (23:45)
[2021-10-29] MEDS ORDERED: Witch Hazel PAD JAR TOPICAL PRN (23:52)
[2021-10-29] MEDS ORDERED: Dibucaine 1% OINT 28.35 GM TUBE PR PRN (23:52)
[2021-10-30] MEDS ORDERED: Lidocaine 1% VIAL 10 MG/ML VIAL ONE (01:19)
[2021-10-30 07:28] LABS: ABS Lymphocytes 1.6 10^3/ul (1.0-4.8); ABS Neutrophils 8.1 10^3/ul (1.5-7.7); Eosinophil % 0.2 %; Hematocrit 38 % (35-47); Hemoglobin 13.1 g/dL (12.0-16.0); Lymphocyte % 14.7 %; Mean Corpuscular HGB Conc 34 g/dL (31-36); Mean Corpuscular Hemoglobin 28 pg (27-31); Mean Corpuscular Volume 83 fL (80-97); Mean Platelet Volume 9.3 fL (7.4-10.4); Platelet Count 160 10^3/uL (150-450); Red Blood Count 4.63 10^6 /uL (3.70-4.87); Red Cell Distribution Width 14 % (10-15); White Blood Count 10.7 10^3/uL (3.5-10.8)
[2021-10-30] MEDS: Calcium Carb (TUMS) 500 mg CHEW TAB PO PRN (08:58)
[2021-10-31 09:05] VITALS: BP 130/88
== END 2021-10-31 19:30 | disposition home or self-care (01) | DRG 560 ==
LOC: MCHOBOUT 10:19 → MCHOB 11:22
PROVIDERS: ADMIT Midwife; ATTEND Midwife